=== PATIENT | male | born 1990 | race Caucasian/White ===

== ENCOUNTER 2022-05-31 21:52 | Emergency (ER) | payer OTHER ==
[~2022-05-31] VITALS: Ht 175.3 cm; Wt 111.1 kg
--- NOTE | 2022-05-31 22:00 | NUR ---
BIBSE[facility] C/O LEFT RINGER FINGER LAC CUT ON GLASS. PLACED COMFORTABLY IN BED. SKIN PREP DONE. VITALS CHECKED.
--- NOTE | 2022-05-31 22:53 | NUR ---
DR JOHN AT BEDSIDE
[2022-05-31] MEDS ORDERED: GELATIN SPONGE,ABSORBABLE 1 SPONGE SPONGE TP ONE (23:06)
--- NOTE | 2022-05-31 23:13 | NUR ---
SUTURING OF WOUND DONE BY DR JOHN.DRESSING APPLIED
[2022-05-31 23:20] VITALS: BP 134/70
== END 2022-05-31 23:21 | disposition home or self-care (01) ==
LOC: ER 21:59
DX: S61.215A Laceration without foreign body of left ring finger without damage to nail, initial encounter (principal); W25.XXXA Contact with sharp glass, initial encounter; Y93.89 Activity, other specified; Y92.89 Other specified places as the place of occurrence of the external cause; Y99.8 Other external cause status
CPT/HCPCS: 73120-TC